=== PATIENT | female | born 1960 | race Caucasian/White ===

== ENCOUNTER 2024-04-20 13:57 | Emergency (ER) | payer BC, SELFPAY ==
--- NOTE | 2024-04-20 15:46 | RAD REPORT ---
EXAM DESCRIPTION: RAD - Hip Right 2 View - 04/20/2024 3:34 pm CLINICAL HISTORY: PAIN COMPARISON: No comparisons FINDINGS/IMPRESSION: No acute fracture. No right hip dislocation. Mild right acetabular degenerative changes.
--- NOTE | 2024-04-20 15:46 | RAD REPORT ---
EXAM DESCRIPTION: RAD - Hip Left 2 View - 04/20/2024 3:34 pm CLINICAL HISTORY: PAIN COMPARISON: <Comparisons> FINDINGS/IMPRESSION: Mildly displaced left-sided intertrochanteric hip fracture. No dislocation. Mil d left acetabular degenerative changes.
[2024-04-20] MEDS ORDERED: NICOTINE 21 MG/PAT TD ONE (15:47)
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
[2024-04-20] MEDS ORDERED: FENTANYL CITR 100 MCG/2 ML ONE ×2 (15:48→17:06)
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
--- NOTE | 2024-04-20 15:49 | EDPHYS ---
Physician Documentation [facility] Name: Anju Garcia Age: 63 yrs Sex: Female : 1960 Arrival Date: 04/20/2024 Time: 13:57 Bed 2 Private MD: ED Physician Jose Vides HPI: 04/20 14:06 This 63 yrs old Female presents to ER via Unassigned with complaints of Fall Injury. rn 14:06 Details of fall: The patient fell from an upright position. Onset: The symptoms/episode rn began/occurred just prior to arrival. Associated injuries: The patient sustained Left hip. Severity of symptoms: At their worst the symptoms were moderate, in the emergency department the symptoms have improved. The patient has not experienced similar symptoms in the past. Patient reports slept, fall, left hip pain. Isolated injury without any other pain. Given 100 mcg of fentanyl by EMS with improvement.. Historical: - Allergies: 14:08 Vicodin; me1 - PMHx: 14:08 Diabetes mellitus; tremors; former IV drug user; me1 - PSHx: 14:16 Total abdominal hysterectomy; me1 - Immunization history:: Adult Immunizations up to date. - Infectious Disease History:: Denies. - Immunization history: Last tetanus immunization: < 5 years ago. - Family history:: not pertinent. - Social history:: Smoking status: Patient reports the use of cigarette tobacco products, smokes two packs cigarettes per day. - Hospitalizations: : No recent hospitalization is reported. ROS: 14:06 Constitutional: Negative for fever, chills, and weight loss, Neck: Negative for injury, rn pain, and swelling, Cardiovascular: Negative for chest pain, palpitations, and edema, Respiratory: Negative for shortness of breath, cough, wheezing, and pleuritic chest pain, Abdomen/GI: Negative for abdominal pain, nausea, vomiting, diarrhea, and constipation, Back: Negative for injury and pain, MS/Extremity: Positive for left hip injury and pain Neuro: Negative for headache, weakness, numbness, tingling, and seizure, Exam: 14:06 Constitutional: This is a well developed, well nourished patient who is awake, alert, rn laying on right side Head/Face: Normocephalic, atraumatic. Neck: No midline cervical tenderness Cardiovascular: Regular rate and rhythm. No pulse deficits. Respiratory: No increased work of breathing, no retractions or nasal flaring. MS/ Extremity: Pulses equal, no cyanosis. Neurovascular intact. Tenderness to palpation left hip and painful range of motion Neuro: Awake and alert, GCS 15 Vital Signs: 14:05 BP 119 / 60; Pulse 111; Resp 18; Temp 97.9; Pulse Ox 92% on R/A; Weight 142.88 kg; me1 Height 5 ft. 8 in. ; Pain 10/10; 15:00 BP 137 / 0; Pulse 78; Resp 18; Pulse Ox 91% on R/A; me1 15:45 BP 128 / 97; Pulse 83; Resp 17; Pulse Ox 91% on R/A; me1 15:46 Pulse Ox 96% on 2 lpm NC; me1 16:00 BP 106 / 90; Pulse 91; Resp 18; Pulse Ox 96% on 2 lpm NC; me1 16:58 BP 127 / 62; Pulse 83; Resp 18; Pulse Ox 95% on 2 lpm NC; me1 14:05 Body Mass Index 47.90 (142.88 kg, 172.72 cm) me1 14:05 Pain Scale: Adult me1 [place] Coma Score: 14:12 Eye Response: spontaneous(4). Motor Response: obeys commands(6). Verbal Response: me1 oriented(5). Total: 15. Trauma Score (Adult): 14:12 Eye Response: spontaneous(1); Verbal Response: oriented(1); Motor Response: obeys me1 commands(2); Systolic BP: > 89 mm Hg(4); Respiratory Rate: 10 to 29 per min(4); Ryne Score: 15; Trauma Score: 12 MDM: 14:00 Patient medically screened. rn 15:48 Differential diagnosis: contusion, fracture, sprain, strain. Data reviewed: vital rn signs, nurses notes, radiologic studies, plain films, and as a result, I will admit patient. Independent interpretation of the following test(s) in the Emergency Department X-Ray: My interpretation is X-ray left hip images show nondisplaced intertrochanteric fracture per my interpretation. Care significantly affected by the following chronic conditions: Diabetes. Counseling: I had a detailed discussion with the patient and/or guardian regarding the historical points, exam findings, and any diagnostic results supporting the discharge/admit diagnosis, radiology results, the need for outpatient follow up, to return to the emergency department if symptoms worsen or persist or if there are any questions or concerns that arise at home. Response to treatment: the patient's symptoms have mildly improved after treatment, and as a result, I will admit patient. 04/20 14:00 Order name: XRAY Hip RIGHT 2 view; Complete Time: 15:48 rn 04/20 14:00 Order name: XRAY Pelvis; Complete Time: 15:48 rn 04/20 14:04 Order name: XRAY Hip LEFT 2 view; Complete Time: 15:48 rn Administered Medications: 15:56 Drug: Nicoderm CQ Transdermal Patch 21 mg/24 hr 1 patches Transdermal once Route: me1 Transdermal; Site: anterior chest wall; 15:57 Follow up: Response: No adverse reaction me1 15:57 Drug: fentaNYL (PF) IVP 50 mcg IVP once Route: IVP; Site: right forearm; me1 15:57 Follow up: Response: No adverse reaction; Pain is decreased me1 17:08 Drug: fentaNYL (PF) IVP 50 mcg IVP once Route: IVP; Site: right antecubital; me1 17:11 Follow up: Response: No adverse reaction me1 Disposition Summary: 04/20/24 15:49 Transfer Ordered Notes: Transfer Location: [facility] rn Reason: Higher level of care rn Condition: Stable rn Problem: new rn Symptoms: have improved rn Accepting Physician: (04/20/24 17:13) me1 Diagnosis - Intertrochanteric fracture of femur - Left, acute, closed rn Forms: - Medication Reconciliation Form rn - SBAR form rn Signatures: Dispatcher [employer] Jose Stahl MD MD rn Eddleman, Michelle, RN RN me1 Corrections: (The following items were deleted from the chart) 14:01 14:01 Hip Right 2 View+RAD.RAD.BRZ ordered. JOSUEMD JOSUEMD 17:13 15:49 rn me1
[2024-04-20 17:30] VITALS: TEMP 97.9
[2024-04-20 17:43] VITALS: BP 127/62; O2SAT 95
== END 2024-04-20 17:13 | disposition short-term general hospital (02) ==
LOC: ER 13:57
DX: S72.142A Displaced intertrochanteric fracture of left femur, initial encounter for closed fracture (principal); W18.30XA Fall on same level, unspecified, initial encounter
CPT/HCPCS: 72170; 99285; J3010